=== PATIENT | male | born 1995 | race Caucasian/White ===

== ENCOUNTER 2022-05-31 22:22 | Observation (INO) ==
[2022-05-31 23:05] LABS: Basophils % 0.2 %; Hematocrit 44.7 % (37.5-50.1); Hemoglobin 15.4 g/dL (12.9-16.9); Immature Granulocytes % 0.3 % (0-4); Lymphocytes % 5.6 %; Mean Corpuscular HGB Conc 34.5 g/dL (31.6-35.5); Mean Corpuscular Hemoglobin 30.9 pg (28.0-33.3); Mean Corpuscular Volume 89.8 fL (83.0-100.0); Mean Platelet Volume 9.7 fL (9.4-12.4); Monocytes # 1.8 K/mcL (0.0-1.3); Monocytes % 10.1 %; Platelet Count 228 K/mcL (140-400); Red Blood Count 4.98 M/mcL (4.19-5.50); Red Cell Distribution Width 11.8 % (11.5-14.5); Segmented Neutrophils % 83.8 %; White Blood Count 17.9 K/mcL (4.3-11.1)
[2022-05-31 23:24] LABS: Alanine Aminotransferase 17 Units/L (7-52); Albumin 4.5 g/dL (3.5-5.7); Albumin/Globulin Ratio 1.3 (1.1-2.2); Alkaline Phosphatase 81 Units/L (34-104); Aspartate Amino Transferase 16 Units/L (13-39); BUN/Creatinine Ratio 8 (6-26); Bilirubin,Direct 0.2 mg/dL (0.0-0.2); Bilirubin,Indirect 0.8 mg/dL (0.0-1.0); Blood Urea Nitrogen 8 mg/dL (6-20); Calcium 9.9 mg/dL (8.6-10.3); Carbon Dioxide 28 mEq/L (23-29); Chloride 99 mEq/L (98-107); Globulin 3.4 g/dL (2.4-3.5); Glucose 110 mg/dL (70-105); Lipase 4 Units/L (11-82); Osmolality,Calculated 277 (280-300); Potassium 3.6 mEq/L (3.5-5.1); Sodium 134 mEq/L (136-145); Total Protein 7.9 g/dL (6.4-8.9)
[2022-05-31 23:39] LABS: Influenza A PCR Negative (Negative); Influenza B PCR Negative (Negative); Resp. Syncytial Virus PCR Negative (Negative)
[2022-05-31 23:41] LABS: SARS-CoV-2 by PCR (In House) Positive (Negative)
[2022-05-31 23:58] LABS: Bilirubin,Urine Negative (Negative); Blood,Urine Negative (Negative); Clarity,Urine Clear (Clear); Color,Urine Light-Yellow (Yellow); Glucose,Urine (UA) Normal (Normal); Ketones,Urine 60 mg/dL (Negative); Leukocyte Esterase,Urine Negative (Negative); Nitrite,Urine Negative (Negative); PH,Urine 6.5 pH Units (5.0-8.0); Protein,Urine Trace mg/dL (Neg-Trace); Specific Gravity,Urine 1.016 (1.010-1.025); Urobilinogen,Urine Normal (Normal)
[2022-06-01] MEDS ORDERED: MetroNIDAZOLE 500 MG/100 ML 500 MG/100 ML BAG IVPB ONE (01:50)
[2022-06-01] MEDS ORDERED: cefTRIAXone 2,000 MG in 0.9 % Sodium Chloride 20 ML IVP ONE (01:50)
[2022-06-01] MEDS ORDERED: Ondansetron 4 MG/2 ML VIAL IVP ONE (01:56)
[2022-06-01] MEDS ORDERED: 0.9 % Sodium Chloride 1,000 ML IVC ONE (01:56)
[2022-06-01] MEDS ORDERED: *HR* FentaNYL (PF) 100 MCG/2 ML VIAL IVP ONE (01:56)
[2022-06-01] MEDS ORDERED: Naloxone 0.4 MG/ML INJ IVP PRN ×2 (02:04→16:20)
[2022-06-01] MEDS ORDERED: Ketorolac 30 MG/ML VIAL IVP PRN ×2 (02:04→16:20)
[2022-06-01] MEDS ORDERED: Ondansetron 4 MG/2 ML VIAL IVP PRN ×2 (02:04→16:20)
[2022-06-01] MEDS ORDERED: Acetaminophen 325 MG TABLET PO PRN (02:04)
[2022-06-01] MEDS ORDERED: 0.9 % Sodium Chloride 1,000 ML IVC SCH (02:15)
[2022-06-01] MEDS: MetroNIDAZOLE 500 MG/100 ML 500 MG/100 ML BAG IVPB SCH ×2 (08:18→16:34)
[2022-06-01] MEDS ORDERED: Pantoprazole 40 MG VIAL IVP SCH (09:00)
[2022-06-01] MEDS ORDERED: cefTRIAXone 1,000 MG in 0.9 % Sodium Chloride Mini Bag 100 ML IVPB SCH (09:00)
[2022-06-01 09:42] LABS: Hematocrit 39.5 % (37.5-50.1); Mean Corpuscular HGB Conc 34.2 g/dL (31.6-35.5); Mean Corpuscular Hemoglobin 31.1 pg (28.0-33.3); Mean Platelet Volume 10.6 fL (9.4-12.4); Platelet Count 196 K/mcL (140-400); Red Blood Count 4.34 M/mcL (4.19-5.50); Red Cell Distribution Width 11.9 % (11.5-14.5); White Blood Count 13.4 K/mcL (4.3-11.1)
[2022-06-01 09:52] LABS: Hemoglobin 13.5 g/dL (12.9-16.9)
[2022-06-01 09:58] LABS: BUN/Creatinine Ratio 10 (6-26); Blood Urea Nitrogen 9 mg/dL (6-20); Carbon Dioxide 29 mEq/L (23-29); Chloride 103 mEq/L (98-107); Glucose 91 mg/dL (70-105); Osmolality,Calculated 282 (280-300); Potassium 3.7 mEq/L (3.5-5.1); Sodium 137 mEq/L (136-145)
[2022-06-01] MEDS ORDERED: *HR* Propofol 200 MG/20 ML VIAL IVP ONE (13:00)
[2022-06-01] MEDS ORDERED: *HR* Rocuronium Bromide 50 MG/5 ML VIAL ONE ×2 (13:00→15:09)
[2022-06-01] MEDS ORDERED: Lidocaine -MPF 2% 2 ML VIAL ONE (13:00)
[2022-06-01] MEDS ORDERED: Ondansetron 4 MG/2 ML VIAL ONE (13:00)
[2022-06-01] MEDS ORDERED: *HR* Succinylcholine 200 MG/10 ML VIAL IVP ONE (13:00)
[2022-06-01] MEDS ORDERED: *HR* FentaNYL (PF) 100 MCG/2 ML VIAL ONE (13:01)
[2022-06-01] MEDS ORDERED: Sugammadex Sodium 200 MG/2 ML VIAL IV ONE (13:04)
[2022-06-01] MEDS ORDERED: Ketorolac 30 MG/ML VIAL ONE (13:04)
[2022-06-01] MEDS ORDERED: Iopamidol - 300 50 ML VIAL ONE (13:24)
[2022-06-01] MEDS ORDERED: *HR* HYDROMORPHONE 2 MG/ML VIAL ONE (14:04)
[2022-06-01] MEDS ORDERED: Acetaminophen IV 1,000 MG/100 ML BAG IVPB ONE (14:51)
[2022-06-01] MEDS: *HR* OxyCODONE/APAP 5/325 TABLET PO PRN (21:21)
[2022-06-01 23:24] VITALS: O2SAT 96
[2022-06-02] MEDS: MetroNIDAZOLE 500 MG/100 ML 500 MG/100 ML BAG IVPB SCH ×2 (00:20→08:48)
[2022-06-02 03:19] VITALS: BP 113/69; PULSE 75; TEMP 97.8
[2022-06-02] MEDS: *HR* OxyCODONE/APAP 5/325 TABLET PO PRN ×2 (03:28→08:47)
[2022-06-02 08:42] LABS: Basophils % 0.1 %; Hematocrit 36.8 % (37.5-50.1); Hemoglobin 12.3 g/dL (12.9-16.9); Immature Granulocytes % 0.4 % (0-4); Lymphocytes % 8.6 %; Mean Corpuscular HGB Conc 33.4 g/dL (31.6-35.5); Mean Corpuscular Hemoglobin 30.9 pg (28.0-33.3); Mean Corpuscular Volume 92.5 fL (83.0-100.0); Mean Platelet Volume 10.1 fL (9.4-12.4); Monocytes % 8.5 %; Neutrophils # 9.8 K/mcL (1.6-8.9); Platelet Count 193 K/mcL (140-400); Red Blood Count 3.98 M/mcL (4.19-5.50); Red Cell Distribution Width 11.9 % (11.5-14.5); Segmented Neutrophils % 82.4 %; White Blood Count 11.9 K/mcL (4.3-11.1)
[2022-06-02] MEDS ORDERED: Pantoprazole 40 MG VIAL IVP SCH (09:00)
[2022-06-02] MEDS ORDERED: cefTRIAXone 1,000 MG in 0.9 % Sodium Chloride 10 ML IVP SCH (09:00)
[2022-06-02] MEDS ORDERED: Vancomycin Oral Soln 125 MG/2.5 ML UDC PO SCH (13:00)
== END 2022-06-02 11:30 | disposition home or self-care (01) ==
LOC: EMEROOARM 22:22 → 3BNU 22:22 → SUATTDRO 06-01 02:18 → 3BNU 06-01 02:45
PROVIDERS: ADMIT Internal Medicine; ATTEND Registered Nurse